=== PATIENT | male | born 1980 | race Caucasian/White ===

== ENCOUNTER 2018-07-12 11:22 | Outpatient (CLI) | payer OTHER ==
[2018-07-12 18:42] LABS: HGB - HEMOGLOBIN 15.8 g/dL (14.0-18.0); MEAN CORPUSCULAR HEMOGLOBIN 28.4 pg (27.0-31.0); MEAN CORPUSCULAR HGB CONC 32.3 g/dL (32.0-36.0); MEAN PLATELET VOLUME 8.1 fL (7.4-11.4); RED BLOOD COUNT 5.56 10^6/uL (4.70-6.10); RED CELL DISTRIBUTION WIDTH 13.9 % (12.0-15.0)
[2018-07-12 19:13] LABS: URIC ACID 6.6 mg/dL (2.6-7.2)
[2018-07-12 19:19] LABS: RHEUMATOID FACTOR NEGATIVE (Negative)
[2018-07-12 19:57] LABS: CRP - C-REACTIVE PROTEIN < 1.0 mg/dL (0-1.0)
[2018-07-14 14:02] LABS: ANA SCREEN NEGATIVE (NEGATIVE)
== END 2018-07-12 23:59 | disposition home or self-care (01) ==
LOC: LAB.WCP 11:22
PROVIDERS: ATTEND Family Medicine
DX: M25.50 Pain in unspecified joint (principal); R53.83 Other fatigue
CPT/HCPCS: 36415; 84550; 85027; 85651; 86038; 86140; 86200; 86430